=== PATIENT | male | born 1965 | race African-American/Black ===

== ENCOUNTER 2020-02-23 16:59 | Emergency (ER) | payer BC, OTHER ==
[~2020-02-23] VITALS: Ht 177.8 cm; Wt 93.0 kg
[2020-02-23] MEDS ORDERED: LIDOCAINE 2% JELLY 11ml (GLYDO) ONE (17:16)
[2020-02-24 02:43] VITALS: BP 154/104
== END 2020-02-24 02:53 | disposition home or self-care (01) ==
LOC: ER 17:01
DX: R33.9 Retention of urine, unspecified (principal); R10.819 Abdominal tenderness, unspecified site; R14.0 Abdominal distension (gaseous); Z96.0 Presence of urogenital implants
CPT/HCPCS: 51702

== ENCOUNTER 2023-08-17 01:10 | Emergency (ER) | payer BC ==
[~2023-08-17] VITALS: Ht 177.8 cm; Wt 97.0 kg
[2023-08-17 05:20] VITALS: BP 139/84; PULSE 78; RESP 20; TEMP 98.6
[2023-08-17 05:27] VITALS: O2SAT 100
== END 2023-08-17 05:42 | disposition home or self-care (01) ==
LOC: ER 01:10
DX: R33.9 Retention of urine, unspecified (principal); I10 Essential (primary) hypertension; Z46.6 Encounter for fitting and adjustment of urinary device
CPT/HCPCS: 51702